=== PATIENT | female | born 1955 | race Caucasian/White ===

== ENCOUNTER 2018-04-16 14:55 | Inpatient (IN) ==
[2018-04-16] MEDS ORDERED: *HR* Labetalol 20 MG/4 ML SYRINGE IVP ONE (15:09)
[2018-04-16] MEDS ORDERED: 0.9 % Sodium Chloride 1,000 ML IVC ONE (15:16)
[2018-04-16] MEDS ORDERED: Metoclopramide 10 MG/2 ML VIAL IVP ONE (15:16)
[2018-04-16] MEDS ORDERED: *HR* Labetalol 100 MG/20 ML MDV ONE (15:16)
--- NOTE | 2018-04-16 15:47 | Emergency Department Note ---
START Narrative - START START: I examined this patient and my medical decision-making was reviewed with the Resident Physician. I agree with the documented findings, disposition and treatment plan as described except to the extent set forth below. 62 yo F here for MA and right facial numbness. MA for past few days. numbness this am around 7am. feels like her face is weak on right side. She denies any leg or arm involvement. She states she has had a headache generally speaking for the past couple days. She has had a recent diagnosis of uncontrolled hypertension in which she was started on medications last . Her blood pressure today is 200 systolic. We have ordered a CT head. I ordered some IV blood pressure medications. Patient will need to be admitted for CVA workup as well as blood pressure control. On exam, she does have flattening of the right nasolabial fold. No other focal deficits other than she describes some sensory numbness to the right cheek and right corner of the mouth.
--- NOTE | 2018-04-16 16:13 | Emergency Department Note ---
Disposition Clinical Impression: Stroke-like symptom, Hypertensive emergency Headache Qualifiers: Headache type: other headache syndrome Qualified Code(s): G44.89 - Other headache syndrome Disposition: Admitted As Inpatient Condition: Fair Referrals: Amadou Ching MD [Primary Care Provider] - Forms: ED Satisfaction Letter Time of Disposition: 17:02 General Adult HPI - General Chief complaint: ED Headache Stated complaint: MA Time Seen by Provider: 04/16/18 15:07 Source: patient Limitations: no limitations Nursing Notes Reviewed: Yes Vital Signs Reviewed: Yes - History of Present Illness HPI Narrative: 62-year-old female presents to the emergency department with concern for headache. Patient states that it started at 7 AM this morning. Patient states that she woke up with it. Patient describes it as similar to the headaches that she has had over the last 3 and half weeks. Patient states that she has some right-sided numbness of the face. Denies any history of strokes. Is supposed to follow neurology. Takes lisinopril for blood pressure. Patient still has the headache. Denies that it is worse than the previous ones she has had. Pain Scale: 6 - Related Data Home Medications Medication Instructions Recorded Confirmed Albuterol Neb [Proventil Neb] 2.5 mg IH Q6H PRN 04/16/18 04/16/18 Fluticasone/Salmeterol [Advair 1 puff IH BID 04/16/18 04/16/18 250-50 Diskus] Ipratropium/Albuterol Sulfate 2 puff IH BID PRN 04/16/18 04/16/18 [Combivent Respimat 20-100 Mcg] Lisinopril [Zestril] 20 mg PO DAILY 04/16/18 04/16/18 Metformin HCl [Metformin HCl] 500 mg PO BID 04/16/18 04/16/18 Omeprazole [PriLOSEC] 40 mg PO DAILY 04/16/18 04/16/18 Allergies Allergy/AdvReac Type Severity Reaction Status Date / Time No Known Allergies Allergy Verified 04/16/18 14:57 All systems ED: reviewed and negative except as stated. Review of Systems: As Per HPI Constitutional: Denies: fever Cardiovascular: Denies: chest pain Respiratory: Denies: cough, dyspnea Gastrointestinal: Denies: abdominal pain, nausea, vomiting Genitourinary: Denies: urgency Musculoskeletal: Denies: back pain, neck pain Integumentary: Denies: rash Neurological: Reports: headache, numbness Past Medical History - Past Medical History Medical history: Reports: COPD, diabetes, hyperlipidemia, hypertension, kidney stones, other Surgical history: Reports: Psychiatric history: Reports: no psych history - Social History Smoking Status: Current every day smoker Smokeless Tobacco Status: No Alcohol use: Reports: rarely Drug use: Reports: cocaine, marijuana Physical Exam - General Limitations: no limitations General appearance: alert - Head Head exam: atraumatic, normocephalic - Eye Eye exam: Present: EOMI - ENT ENT exam: normal exam, normal oropharynx - Neck Neck exam: Present: trachea midline. Absent: tenderness, meningismus - Chest Chest inspection: Present: symmetric chest wall rise - Respiratory Respiratory exam: Present: normal lung sounds bilaterally. Absent: respiratory distress - Cardiovascular Cardiovascular exam: Present: regular rate, normal rhythm, normal heart sounds - Abdominal Exam Abdominal exam: Present: soft, tenderness. Absent: distention, guarding, rebound Abdominal tenderness: Present: diffuse, mild - Extremities Exam Extremities exam: Present: full ROM, normal capillary refill. Absent: tenderness - Back Exam Back exam: Present: normal inspection. Absent: tenderness - Neurological Exam Neurological exam: Present: alert, oriented X3, other (Right-sided facial weakness, normal sensation throughout, able to wrinkle forehead, GCS 15) - Psychiatric Psychiatric exam: Present: normal affect, normal mood - Skin Skin exam: Present: warm, dry, intact Course Vital Signs Temperature 97.8 F 04/16/18 14:57 Pulse Rate 88 04/16/18 14:57 Respiratory Rate 16 04/16/18 14:57 Blood Pressure 207/115 04/16/18 14:57 O2 Sat by Pulse Oximetry 97 04/16/18 14:57 Temperature 97.8 F 04/16/18 14:57 Pulse Rate 85 04/16/18 16:25 Respiratory Rate 16 04/16/18 16:25 Blood Pressure 153/90 04/16/18 16:25 O2 Sat by Pulse Oximetry 96 04/16/18 16:25 Oxygen Delivery Oxygen Delivery Room Air Medical Decision Making - MDM Narrative Medical decision making narrative: 62-year-old female presents to the emergency department with concern for headache and new right-sided facial weakness starting at 7 AM this morning. NIH of 1 Patient out of the window for TPA. Patient was reporting facial numbness of the right side of her face, but on exam, sensation was the same on both sides of her face. CT scan of the head did not reveal evidence of new ischemic changes. Electrocardiogram did not reveal any ischemic changes. Blood pressure was elevated with a systolic in the 200s. Patient was given 10 mg labetalol to reduce blood pressure some, but to not stop cerebral perfusion. Patient will be admitted to the hospital for further management of both her new neurologic abnormalities as well as blood pressure. Patient was mildly hypokalemic with a potassium of 3.3. Gave 40 mg oral potassium. Spoke with the neurologist, Dr. Scales on the phone regarding patient care. He recommended giving aspirin. Spoke with patient at bedside with and he appreciated the right facial weakness that has still persisted. Systolic blood pressure now reduced to the 150s. Patient's headache has now resolved. Patient agreed for admission. Hospitalist agreed to accept patient for admission. Hemodynamically stable and not in any acute distress at this time. Head CT 04/16/18 15:07 IMPRESSION: No acute intracranial abnormality with few incidental/chronic findings as described. D/ / Judy Julian MD / Judy Julian MD Interpreting Provider: Judy Julian MD Chest X-Ray 04/16/18 16:16 IMPRESSION: Grossly clear lungs. D/ / Vincent Vogel MD / Vincent Vogel MD Interpreting Provider: Vincent Vogel MD Vital Signs Temperature 97.8 F 04/16/18 14:57 Pulse Rate 88 04/16/18 14:57 Respiratory Rate 16 04/16/18 14:57 Blood Pressure 207/115 04/16/18 14:57 O2 Sat by Pulse Oximetry 97 04/16/18 14:57 Temperature 97.8 F 04/16/18 14:57 Pulse Rate 85 04/16/18 16:25 Respiratory Rate 16 04/16/18 16:25 Blood Pressure 153/90 04/16/18 16:25 O2 Sat by Pulse Oximetry 96 04/16/18 16:25 Oxygen Delivery Oxygen Delivery Room Air - Lab Data Result diagrams: 04/16/18 16:12 04/16/18 16:12 Lab Results 04/16/18 04/16/18 04/16/18 Range/Units 16:12 16:12 16:12 WBC 9.3 (4.3-11.1) K/mcL RBC 4.73 (3.82-4.97) M/mcL Hgb 13.5 (11.5-15.4) g/dL Hct 39.3 (35.3-44.9) % MCV 83.1 (83.0-100.0) fL MCH 28.5 (28.0-33.3) pg MCHC 34.4 (31.6-35.5) g/dL RDW 13.6 (11.5-14.5) % Plt Count 284 (140-400) K/mcL MPV 10.5 (9.4-12.4) fL Immature Gran % 0.3 (0-4) % Seg Neutrophils % 56.5 % Lymphocytes % 29.3 % Monocytes % 9.2 % Eosinophils % 4.2 % Basophils % 0.5 % Neutrophils # 5.2 (1.6-8.9) K/mcL Lymphocytes # 2.7 (0.6-4.6) K/mcL Monocytes # 0.9 (0.0-1.3) K/mcL Eosinophils # 0.4 (0.0-0.6) K/mcL Basophils # 0.1 (0.0-0.2) K/mcL PT 10.1 (9.4-12.1) Seconds INR 0.9 APTT 38.4 H (26.0-36.0) Seconds Sodium 141 (136-145) mEq/L Potassium 3.3 L (3.5-5.1) mEq/L Chloride 107 (98-107) mEq/L Carbon Dioxide 26 (23-29) mEq/L BUN 9 (8-23) mg/dL Creatinine 0.58 L (0.60-1.20) mg/dL Est GFR ( Amer) > 60 (> 60) Est GFR (Non-Af Amer) > 60 (> 60) BUN/Creatinine Ratio 16 (6-26) Glucose 131 H (70-105) mg/dL Calculated Osmolality 292 (280-300) Calcium 8.3 L (8.6-10.3) mg/dL - EKG Data EKG #2 EKG attestation: Yes I reviewed and interpreted this EKG. EKG results narrative: 15:34 Ventricular rate 79 bpm, NV interval 184 ms, QRS duration 93 ms, QT 393 ms, QTC 427 ms, left axis deviation. There are no ischemic ST changes noted on this electrocardiogram with a previous study compared on 04/01/2018.
[2018-04-16 16:43] LABS: Basophils # 0.1 K/mcL (0.0-0.2); Basophils % 0.5 %; Eosinophils # 0.4 K/mcL (0.0-0.6); Eosinophils % 4.2 %; Hematocrit 39.3 % (35.3-44.9); Hemoglobin 13.5 g/dL (11.5-15.4); Immature Granulocytes % 0.3 % (0-4); Lymphocytes # 2.7 K/mcL (0.6-4.6); Lymphocytes % 29.3 %; Mean Corpuscular HGB Conc 34.4 g/dL (31.6-35.5); Mean Corpuscular Hemoglobin 28.5 pg (28.0-33.3); Mean Corpuscular Volume 83.1 fL (83.0-100.0); Mean Platelet Volume 10.5 fL (9.4-12.4); Monocytes # 0.9 K/mcL (0.0-1.3); Monocytes % 9.2 %; Neutrophils # 5.2 K/mcL (1.6-8.9); Platelet Count 284 K/mcL (140-400); Red Blood Count 4.73 M/mcL (3.82-4.97); Red Cell Distribution Width 13.6 % (11.5-14.5); Segmented Neutrophils % 56.5 %
[2018-04-16] MEDS ORDERED: Aspirin 81 MG TAB.CHEW PO STA (16:44)
[2018-04-16 16:45] LABS: INR 0.9; Prothrombin Time 10.1 Seconds (9.4-12.1)
[2018-04-16 16:48] LABS: Activated Partial Thrombo Time 38.4 Seconds (26.0-36.0); BUN/Creatinine Ratio 16 (6-26); Blood Urea Nitrogen 9 mg/dL (8-23); Calcium 8.3 mg/dL (8.6-10.3); Carbon Dioxide 26 mEq/L (23-29); Chloride 107 mEq/L (98-107); Glucose 131 mg/dL (70-105); Osmolality,Calculated 292 (280-300); Potassium 3.3 mEq/L (3.5-5.1); Sodium 141 mEq/L (136-145); eGFR For African Americans > 60 (> 60); eGFR For Non-African Americans > 60 (> 60)
[2018-04-16] MEDS ORDERED: Ipratropium/Albuterol Neb 3 ML IH PRN (17:20)
[2018-04-16] MEDS ORDERED: D5% in Water 1,000 ML IVC PRN (17:22)
[2018-04-16] MEDS ORDERED: Acetaminophen 325 MG TABLET PO PRN (17:22)
[2018-04-16] MEDS ORDERED: Dextrose Gel 15 GM/37.5 ML TUBE PO PRN ×2 (17:22)
[2018-04-16] MEDS ORDERED: *HR* OxyCODONE Immed Rel 5 MG TABLET PO PRN (17:22)
[2018-04-16] MEDS ORDERED: *HR* Dextrose 50 % in Water (Syg) 50 ML SYRINGE IVP PRN (17:22)
[2018-04-16] MEDS ORDERED: Naloxone 0.4 MG/ML INJ IVP PRN (17:22)
--- NOTE | 2018-04-16 17:28 | Internal Med History&Physical ---
Date of Encounter: 04/16/18 Time of Encounter: 17:26 Internal Medicine - H&P: HPI Chief complaint: Facial weakness Admitted From: Emergency Dept History of present illness: Ms. Zhao is a 62 year old female with a past medical history of diabetes type 2 not insulin-dependent, COPD not oxygen dependent, tobacco abuse, hypertension who came to emergency room complaining of right facial weakness and numbness that started when she woke up at 7 AM this morning. She has been having a headache and tired today and was complaining of right leg tingling since yesterday. She was started on lisinopril one week ago 20 mg daily. Her blood pressure today is 207/115 potassium was 3.[address] scan shows small chronic small vessel disease/ischemic disease mostly on the left. Patient had an MRI of the brain performed on April 08 that did not show any strokes, carotid ultrasound the same day was normal. The MRI of the brain showed minimal global parenchymal volume loss with mild chronic vascular microvascular ischemic changes and bilateral mastoid effusions. Was given labetalol but emergency room and her blood pressures in the 150s at the moment, she is not having some nausea vomiting since last night and one episode of watery diarrhea with abdominal cramps, has not vomited today, no fevers, feels weak Past Med Surg Social Fam HX - Past Medical History Medical history: COPD (Not oxygen dependent), diabetes (Not insulin-dependent), hyperlipidemia, hypertension, kidney stones, other (Tobacco abuse) Additional medical history: "Lesion in the brain", Obese Psychiatric history: no psych history - Past Surgical History Surgical History: , other (Breast reduction, tummy tuck, right ankle surgery) Additional surgical history: breast reduction. tummy tuck. parathyroid - Social History Smoking Status: Current every day smoker Packs per day: Less than half a pack per day Smokeless Tobacco Status: No Alcohol use: rarely Drug use: cocaine, marijuana - Additional Family History Additional family history: Father with diabetes and mother with diabetes and hypertension Internal Medicine - H&P: Meds Albuterol Neb [Proventil Neb] 2.5 mg IH Q6H PRN 04/16/18 [History] Fluticasone/Salmeterol [Advair 250-50 Diskus] 1 puff IH BID 04/16/18 [History] Ipratropium/Albuterol Sulfate [Combivent Respimat 20-100 Mcg] 2 puff IH BID PRN 04/16/18 [History] Lisinopril [Zestril] 20 mg PO DAILY 04/16/18 [History] Metformin HCl [Metformin HCl] 500 mg PO BID 04/16/18 [History] Omeprazole [PriLOSEC] 40 mg PO DAILY 04/16/18 [History] 3 Allergy/AdvReac Type Severity Reaction Status Date / Time No Known Allergies Allergy Verified 04/16/18 14:57 All Systems PM: A 10-system review of systems was performed and is negative for pertinent findings except as documented above in the HPI. Review of systems: Persistent right facial weakness, other systems out of the 10 reviewed were negative - Constitutional Vitals: Temp Pulse Resp BP Pulse Ox 97.8 F 87 18 146/84 96 04/16/18 14:57 04/16/18 17:02 04/16/18 17:02 04/16/18 17:02 04/16/18 16:25 General appearance: Present: A&O X 3 (Minimal right facial droop) - Head Head exam: Present: atraumatic, normocephalic - Eye Eye exam: Present: PERRL, conjuntiva pink, sclera anicteric Pupils: Present: PERRL - Neck Neck exam general surgery: Present: supple, trachea midline. Absent: lymphadenopathy - Respiratory Respiratory exam: Present: CTAB. Absent: accessory muscle use, rales, rhonchi, wheezes - Cardiovascular Cardiovascular exam: Present: RRR, +S1, +S2. Absent: diastolic murmur, gallop, rubs, systolic murmur - GI/Abdominal GI/Abdominal exam: Present: normal bowel sounds, soft, no peritoneal signs. Absent: distended, tenderness - Extremities Exam Extremities exam: Present: warm, radial pulses palpable and symmetrical. Absent : calf tenderness, cyanotic, pedal edema - Neurological Exam Neurological exam: Present: CN II-XII intact, oriented X3, no focal deficits. Absent: pronater drift, facial droop, speech deficit - Skin Skin exam: Present: dry, intact Internal Med - H&P Results - Labs CBC & Chem 7: 04/16/18 16:12 04/16/18 16:12 Labs: Short CBC 05/31/18 Range/Units 16:12 WBC 9.3 (4.3-11.1) K/mcL Hgb 13.5 (11.5-15.4) g/dL Hct 39.3 (35.3-44.9) % Plt Count 284 (140-400) K/mcL Neutrophils # 5.2 (1.6-8.9) K/mcL BMP 04/16/18 16:12 Sodium 141 Potassium 3.3 L Chloride 107 Carbon Dioxide 26 BUN 9 Creatinine 0.58 L Glucose 131 H Calcium 8.3 L - Impressions ITS Impressions Head CT 04/16/18 15:07 IMPRESSION: No acute intracranial abnormality with few incidental/chronic findings as described. D/ / Judy Julian MD / Judy Julian MD Interpreting Provider: Judy Julian MD Chest X-Ray 04/16/18 16:16 IMPRESSION: Grossly clear lungs. D/ / Vincent Vogel MD / Vincent Vogel MD Interpreting Provider: Vincent Vogel MD - Assessment and plan (1) Stroke-like symptom Current Visit: Yes Status: Acute Assessment and plan: Possible CVA Neurology was consulted by the ER Continue aspirin, Lipitor, lipid panel, permissive hypertension today Repeat MRI of the brain, no need to repeat ultrasound of the carotids. Order echocardiogram Telemetry Neurochecks Omeprazole for GI prophylaxis and subcutaneous tenderness heparin for DVT prophylaxis. The patient will be admitted for observation. Full code. Time spent on this admission 40 minutes (2) Hypertensive emergency Current Visit: Yes Status: Acute Assessment and plan: Accelerated hypertension Continue hydralazine IV as needed May start Norvasc and continue lisinopril at an increased dose (3) Tobacco abuse Current Visit: Yes Status: Acute Assessment and plan: Smoking cessation counseling given for 5 min , nicotine patch (4) COPD (chronic obstructive pulmonary disease) Current Visit: Yes Status: Acute Assessment and plan: No exacerbation Qualifiers: COPD type: unspecified COPD Qualified Code(s): J44.9 - Chronic obstructive pulmonary disease, unspecified (5) Diabetes Current Visit: Yes Status: Acute Assessment and plan: Insulin sliding scale Qualifiers: Diabetes mellitus type: type 2 Diabetes mellitus buttermaker helper insulin use: without buttermaker helper use Diabetes mellitus complication status: without complication Qualified Code(s): E11.9 - Type 2 diabetes mellitus without complications (6) Hypokalemia Current Visit: Yes Status: Acute Assessment and plan: Replete as needed - Time Spent With Patient Total time spent is greater than 50% in coordination of care (as documented) at patient's floor/unit and/or counseling patient:
[2018-04-16] MEDS: Nicotine 14 MG PATCH.TD24 TD SCH (21:31)
[2018-04-16] MEDS: amLODIPine 5 MG TABLET PO SCH (21:32)
[2018-04-16] MEDS: *HR* HYDROcodone/Acet 5/325 mg TABLET PO PRN (21:32)
[2018-04-16] MEDS: Insulin LISPRO 300 UNITS/3 ML VIAL SQ SCH ×2 (21:34→21:36)
[2018-04-16] MEDS: *HR* Heparin 5,000 UNIT/ML VIAL SQ SCH (21:34)
[2018-04-16] MEDS: Lisinopril 20 MG TABLET PO SCH (21:35)
[2018-04-16] MEDS: Ondansetron 4 MG/2 ML VIAL IVP PRN (21:37)
[2018-04-17] MEDS: *HR* Heparin 5,000 UNIT/ML VIAL SQ SCH ×4 (01:27→13:57)
[2018-04-17 05:30] LABS: BUN/Creatinine Ratio 15 (6-26); Blood Urea Nitrogen 10 mg/dL (8-23); Calcium 8.3 mg/dL (8.6-10.3); Carbon Dioxide 28 mEq/L (23-29); Chloride 108 mEq/L (98-107); Chol/HDL Ratio 4.8 (0-4.9); Cholesterol 193 mg/dL (< 200); Glucose 142 mg/dL (70-105); HDL Cholesterol 40 mg/dL (40-59); LDL Cholesterol,Calculated 89 mg/dL (0-99); Osmolality,Calculated 293 (280-300); Potassium 3.9 mEq/L (3.5-5.1); Sodium 141 mEq/L (136-145); Triglycerides 318 mg/dL (< 150); eGFR For African Americans > 60 (> 60); eGFR For Non-African Americans > 60 (> 60)
[2018-04-17] MEDS: amLODIPine 5 MG TABLET PO SCH (09:51)
[2018-04-17] MEDS: Nicotine 14 MG PATCH.TD24 TD SCH ×2 (09:51→18:00)
[2018-04-17] MEDS: Insulin LISPRO 300 UNITS/3 ML VIAL SQ SCH ×4 (09:51→21:18)
[2018-04-17] MEDS: Lisinopril 20 MG TABLET PO SCH (09:51)
[2018-04-17] MEDS: Aspirin Enteric Coated 81 MG Tablet PO SCH (09:51)
[2018-04-17] MEDS: *HR* HYDROcodone/Acet 5/325 mg TABLET PO PRN ×2 (10:04→21:04)
--- NOTE | 2018-04-17 16:15 | Internal Med Progress Note ---
<Fitz Johnson - Last Filed: 04/17/18 15:43> Date of Encounter: 04/17/18 Time of Encounter: 15:44 - Assessment and plan (1) Lacunar infarct, acute Current Visit: Yes Status: Acute Assessment and plan: MRI shows small focus of acute infarct within the left lateral midbrain/ inferior thalamus without any associated hemorrhage or mass effect. Patient's symptoms include right facial numbness and weakness. On neuro exam patient has decreased sensation to pinprick and light touch on the right face. Currently she is on aspirin, statin. Echocardiogram shows no wall motion abnormalities, absent PFO. Patient had carotid Dopplers last week which were negative. Neurology has been consulted. PT OT has cleared patient for discharge. (2) Hypertensive emergency Current Visit: Yes Status: Acute Assessment and plan: On admission patient's blood pressure systolic 200s. She reports her blood pressure has been elevated in the past 3 weeks. She was recently started on lisinopril outpatient by nephrology. Currently she is on lisinopril and amlodipine with a blood pressure 130s systolic. (3) Diabetes Current Visit: Yes Status: Acute Assessment and plan: last hga1c 7.5 insulin sliding scale. reports LE toe pain: would like podiatry consult on discharge Qualifiers: Diabetes mellitus type: type 2 Diabetes mellitus jail insulin use: without jail use Diabetes mellitus complication status: without complication Qualified Code(s): E11.9 - Type 2 diabetes mellitus without complications (4) Tobacco abuse Current Visit: Yes Status: Acute Assessment and plan: Smoking cessation counseling given for 5 min , nicotine patch (5) COPD (chronic obstructive pulmonary disease) Current Visit: Yes Status: Acute Assessment and plan: No exacerbation Qualifiers: COPD type: unspecified COPD Qualified Code(s): J44.9 - Chronic obstructive pulmonary disease, unspecified (6) Hypokalemia Current Visit: Yes Status: Resolved Assessment and plan: resolved. (7) Left leg swelling Current Visit: Yes Status: Acute Assessment and plan: has unilateral left lower extremity swelling doppler ordered Patient has increased chance of clotting secondary to nephrotic syndrome. will give one time therapeutic Lovenox. (8) Nephrotic syndrome Current Visit: Yes Status: Acute Assessment and plan: Patient's 24 hour urine protein was 12,449. Last urinalysis was positive for blood and red blood cell casts. She has had extensive workup Patient by nephrology: kappa/lambda ratio wnl, norris WNL, C3 wnl low IgG, normal hepatitis panel, HIV negative, nephrology consulted as patients stroke may be related to this. - Time Spent With Patient Total time spent is greater than 50% in coordination of care (as documented) at patient's floor/unit and/or counseling patient: - Subjective Interval history: Patient reports some Lasix she saw nephrology as there is a lot of protein found on urinalysis. From previous labs patient seems to have nephritic syndrome with red blood cell casts and 24-hour urine protein greater than 12, 000. Patient also has left lower extremity swelling concerning for DVT. She reports that her right facial numbness is present but improved. She denies slurred speech, dizziness, weakness. - Constitutional Vitals: Temp Pulse Resp BP Pulse Ox 97.8 F 75 17 136/82 95 04/17/18 15:04 04/17/18 15:04 04/17/18 15:04 04/17/18 15:04 04/17/18 15:04 General appearance: Present: A&O X 3 (Minimal right facial droop) - Other Additional findings: General: Pleasant without distress HEENT: Head atraumatic, normocephalic, EOMI, PERRL, neck nontender to palpation , absent lymphadenopathy, Moist Mucous Membranes, Heart: Regular rate and rhythm with no murmur Lungs: Clear to auscultation bilaterally Abdomen: Soft nontender, nondistended positive bowel sounds Skin: dry scaly plaques on lower extremities Extremities: LLE edema. Neuro: Cranial nerves II through XII intact, UE and LE sensation equal bilaterally except right facial decreased sensation light tough and pinprick, UE and LE strength 5/5, alert oriented 3, Heel to rivas intact, finger to nose intact, Gait intact, rhombergs sign negative, b/l plantar reflexes downwards Vascular: Pedal and radial pulses 2 out of 4 Internal Medicine: Result - Labs CBC & Chem 7: 04/16/18 16:12 04/17/18 04:55 Labs: BMP 04/17/18 04:55 Sodium 141 Potassium 3.9 Chloride 108 H Carbon Dioxide 28 BUN 10 Creatinine 0.66 Glucose 142 H Calcium 8.3 L - ABG Interpretation ABG results: PT/INR, D-dimer PT 10.1 Seconds (9.4-12.1) 04/16/18 16:12 - Impressions Impressions Echocardiogram 04/17/18 17:21 Impressions: LVEF 60-65%. Normal LV chamber size, wall thickness and function. Mild left ventricular diastolic dysfunction. Normal right ventricular structure and function. No evidence of pulmonary hypertension. No significant valvular dysfunction. No evidence of a PFO with agitated saline contrast. Left Ventricular Wall Motion: Rest Echo Findings All wall segments showed normal motion. Findings: Study Quality * Technically adequate exam. ECG Findings * Normal sinus rhythm. Left Ventricle * LVEF 60-65%. * Normal LV chamber size, wall thickness and function. * Mild left ventricular diastolic dysfunction. Right Ventricle * Normal right ventricular structure and function. Left Atrium * Mild to moderately dilated left atrium. Right Atrium * Normal right atrial size. Aortic Valve * Trileaflet aortic valve. * Mildly sclerotic aortic valve leaflets. * No aortic regurgitation. * No aortic stenosis. Mitral Valve * Normal mitral valve structure and function. * No mitral regurgitation. * No mitral stenosis. Tricuspid Valve * Normal tricuspid valve structure and function. * Trace tricuspid regurgitation. * No evidence of pulmonary hypertension. Pulmonic Valve * Normal pulmonic valve structure and function. * No pulmonic regurgitation. Aorta * Normally sized aortic root. Pericardium * The pericardium appears normal. IVC * Normal IVC dimensions and inspiratory collapse. Pulmonary Artery * Normal visualized portions of the main pulmonary artery. Interatrial Septum * No evidence of PFO with agitated saline contrast. Consult Discharge Plan - Plan Referrals: Amadou Ching MD [Primary Care Provider] - <Destin Melgar - Last Filed: 04/17/18 18:47> Date of Encounter: 04/17/18 - Assessment and plan (1) CVA (cerebral vascular accident) Current Visit: Yes Status: Suspected Qualifiers: CVA mechanism: thrombosis Precerebral and cerebral artery: middle cerebral artery Laterality of affected vessel: left Qualified Code(s): I63.312 - Cerebral infarction due to thrombosis of left middle cerebral artery (2) Hypertensive emergency Current Visit: Yes Status: Acute (3) Diabetes Current Visit: Yes Status: Acute Qualifiers: Diabetes mellitus type: type 2 Diabetes mellitus jail insulin use: without jail use Diabetes mellitus complication status: without complication Qualified Code(s): E11.9 - Type 2 diabetes mellitus without complications (4) Tobacco abuse Current Visit: Yes Status: Acute (5) COPD (chronic obstructive pulmonary disease) Current Visit: Yes Status: Acute Qualifiers: COPD type: unspecified COPD Qualified Code(s): J44.9 - Chronic obstructive pulmonary disease, unspecified (6) Hypokalemia Current Visit: Yes Status: Resolved (7) Lacunar infarct, acute Current Visit: Yes Status: Acute (8) Left leg swelling Current Visit: Yes Status: Acute (9) Nephrotic syndrome Current Visit: Yes Status: Acute - Time Spent With Patient Total time spent is greater than 50% in coordination of care (as documented) at patient's floor/unit and/or counseling patient: - Constitutional Vitals: Temp Pulse Resp BP Pulse Ox 97.8 F 75 17 136/82 95 04/17/18 15:04 04/17/18 15:04 04/17/18 15:04 04/17/18 15:04 04/17/18 15:04 Internal Medicine: Result - Labs CBC & Chem 7: 04/16/18 16:12 04/17/18 04:55 Labs: BMP 04/17/18 04:55 Sodium 141 Potassium 3.9 Chloride 108 H Carbon Dioxide 28 BUN 10 Creatinine 0.66 Glucose 142 H Calcium 8.3 L - ABG Interpretation ABG results: PT/INR, D-dimer PT 10.1 Seconds (9.4-12.1) 04/16/18 16:12 - Impressions Impressions Echocardiogram 04/17/18 17:21 Impressions: LVEF 60-65%. Normal LV chamber size, wall thickness and function. Mild left ventricular diastolic dysfunction. Normal right ventricular structure and function. No evidence of pulmonary hypertension. No significant valvular dysfunction. No evidence of a PFO with agitated saline contrast. Left Ventricular Wall Motion: Rest Echo Findings All wall segments showed normal motion. Findings: Study Quality * Technically adequate exam. ECG Findings * Normal sinus rhythm. Left Ventricle * LVEF 60-65%. * Normal LV chamber size, wall thickness and function. * Mild left ventricular diastolic dysfunction. Right Ventricle * Normal right ventricular structure and function. Left Atrium * Mild to moderately dilated left atrium. Right Atrium * Normal right atrial size. Aortic Valve * Trileaflet aortic valve. * Mildly sclerotic aortic valve leaflets. * No aortic regurgitation. * No aortic stenosis. Mitral Valve * Normal mitral valve structure and function. * No mitral regurgitation. * No mitral stenosis. Tricuspid Valve * Normal tricuspid valve structure and function. * Trace tricuspid regurgitation. * No evidence of pulmonary hypertension. Pulmonic Valve * Normal pulmonic valve structure and function. * No pulmonic regurgitation. Aorta * Normally sized aortic root. Pericardium * The pericardium appears normal. IVC * Normal IVC dimensions and inspiratory collapse. Pulmonary Artery * Normal visualized portions of the main pulmonary artery. Interatrial Septum * No evidence of PFO with agitated saline contrast. - Attending Attestation I examined this patient and my medical decision-making was reviewed with the Resident Physician on 04/17/18. I agree with the documented findings, disposition and treatment plan as described except to the extent set forth below. Ms Zhao is currently admitted for acute CVA and HTN. She remains moderate to high risk due to potential for worsening clinical status. Ms Zhao is doing OK. Still with facial numbness. No fever or chills. L leg swollen. Seeing Dr. Joe for renal issues. Exam alert Comfortable Mucus membranes dry Heart reg No wheeze No other neuro deficit L leg larger than R I/P 1. CVA 2. HTN Further diagnoses and plan as above.
[2018-04-17] MEDS: *HR* Enoxaparin 80 MG/0.8 ML SYRINGE SQ SCH (18:00)
--- NOTE | 2018-04-17 18:29 | Neurology - Consult Note ---
Date of Encounter: 04/17/18 Time of Encounter: 18:27 Assessment and Plan (1) Lacunar infarct, acute Current Visit: Yes Status: Acute Patient has experienced an acute left lacunar infarct involving the left basal ganglia. She does have multiple stroke risk factors including hypertension, hyperlipidemia, diabetes mellitus. Her blood pressure was markedly elevated at 200/115 upon admission. More than likely this was the cause for her intense headache. However I would like to rule out the possibility of cerebral aneurysm given the circumstances. She has had echocardiogram and carotid Doppler studies both of which were negative. However I do believe that she has had uncontrolled hypertensive for quite some time as the MRI reveals significant chronic ischemic white matter change in the centrum semiovale ovale , as well as chronic ischemic change in the cruzito. Risk factor management is paramount, smoking cessation is also paramount. I would recommend aspirin 81 mg daily and follow-up with her primary care provider after discharge. At this point she may need a brief course of outpatient physical therapy. I will order an MRA scan of the brain to assess for the possibility of cerebral aneurysm. Stroke protocol orders should be in place during her hospitalization. History of Present Illness HPI: Chart was reviewed, the patient was seen and examined. Bia Zhao is a very pleasant 62-year-old woman who is being seen for neurologic evaluation secondary to acute infarct in the left basal ganglia. She has been experiencing headaches over the last month or so. The headaches of been increasingly more intense. The night prior to admission she had a very intense headache with associated nausea and vomiting. Apparently she woke up the following morning with Brillion of the right face and right facial numbness. She was brought to the [facility] and her blood pressure was found to be 207/115. She had a carotid Doppler study completed about a week or so ago which revealed no evidence of carotid artery stenosis. She also had an MRI scan of the brain on April 08 the did show a significant chronic ischemic deep white matter change as well as chronic ischemic change in the cruzito. The MRI scan today however revealed the acute infarct in left basal ganglia. Other risk factors include diabetes hyperlipidemia and cigarette smoking. She denies a long history of headaches. And therefore concerned about the possibility of cerebral aneurysm. However the headache was likely due to hypertensive emergency. Past Med Surg Social Fam HX - Past Medical History Medical history: COPD, diabetes, hyperlipidemia, hypertension, kidney stones, other Additional medical history: "Lesion in the brain", Obese Psychiatric history: no psych history - Past Surgical History Surgical History: , other Additional surgical history: breast reduction. tummy tuck. parathyroid - Social History Smoking Status: Current every day smoker Packs per day: Less than half a pack per day Smokeless Tobacco Status: No Alcohol use: rarely Drug use: cocaine, marijuana - Family History Father Living Status: Age at : 75 Cause of : natural causes Hx Family Cardiac Disorders: Yes (pacemaker, cabg, htn) Hx Family Respiratory Disorders: No Hx Family Cancer: Yes (prostate ca) Hx Family GI Disorders: No Hx Family Genitourinary Disorders: Yes (prostate ca) Hx Family Endocrine Disorder: Yes (brights disease) Hx Family Musculoskeletal Disorders: No Hx Family Neuromuscular Disorders: No Hx Family Neurologic Disorders: Yes (dementia) Hx Family HEENT Disorders: No Hx Family Autoimmune Disorders: No Hx Family Reproductive Disorders: Yes (Prostate ca) Hx Family Psychosocial Disorders: No Hx Family Medical Disorders: No Mother Living Status: Still Living Hx Family Cardiac Disorders: Yes (pacemaker, cabg, htn) Hx Family Respiratory Disorders: Yes (asthma) Hx Family Cancer: No Hx Family GI Disorders: No Hx Family Genitourinary Disorders: No Hx Family Endocrine Disorder: Yes (dm !!) Hx Family Musculoskeletal Disorders: No Hx Family Neuromuscular Disorders: No Hx Family Neurologic Disorders: No Hx Family HEENT Disorders: No Hx Family Autoimmune Disorders: No Hx Family Reproductive Disorders: No Hx Family Psychosocial Disorders: No Hx Family Medical Disorders: Yes (von wildebrans) Sister Living Status: Still Living Age at : 65 Cause of : pancreatic cancer Hx Family Cardiac Disorders: No Hx Family Respiratory Disorders: No Hx Family Cancer: Yes (pancreatic ca) Hx Family GI Disorders: No Hx Family Genitourinary Disorders: No Hx Family Endocrine Disorder: No Hx Family Musculoskeletal Disorders: No Hx Family Neuromuscular Disorders: No Hx Family Neurologic Disorders: No Hx Family HEENT Disorders: No Hx Family Autoimmune Disorders: No Hx Family Reproductive Disorders: Yes (infertile) Hx Family Psychosocial Disorders: No Hx Family Medical Disorders: No Medications and Allergies Albuterol Neb [Proventil Neb] 2.5 mg IH Q6H PRN 04/16/18 [History] Fluticasone/Salmeterol [Advair 250-50 Diskus] 1 puff IH BID 04/16/18 [History] Ipratropium/Albuterol Sulfate [Combivent Respimat 20-100 Mcg] 2 puff IH BID PRN 04/16/18 [History] Lisinopril [Zestril] 20 mg PO DAILY 04/16/18 [History] Metformin HCl [Metformin HCl] 500 mg PO BID 04/16/18 [History] Omeprazole [PriLOSEC] 40 mg PO DAILY 04/16/18 [History] 3 Allergy/AdvReac Type Severity Reaction Status Date / Time No Known Allergies Allergy Verified 04/16/18 14:57 All Systems: The remainder of the systems were reviewed and are negative Review of Systems: The balance of the systems review is negative. Physical Examination - Vital Signs Vital Signs: Initial Vital Signs Temp Pulse Resp BP Pulse Ox 97.8 F 88 16 207/115 97 04/16/18 14:57 04/16/18 14:57 04/16/18 14:57 04/16/18 14:57 04/16/18 14:57 - Constitutional General appearance: comfortable - Neurologic Sensorimotor examination: other (Right facial numbness.) Motor examination - right side: 4/5: deltoids, biceps, triceps, assembly person, hip flexors, tibialis Anterior, quadriceps, toe extension (EHL), plantarflexion Motor examination - left side: 5/5: deltoids, biceps, triceps, hip flexors, assembly person , quadriceps, tibialis Anterior, toe extension (EHL), plantarflexion Detailed sensory examination: other (Right facial numbness, however the extremities have equal sensation throughout.) Mental Status Examination: awake, alert, oriented to person, oriented to place, oriented to time, follows commands appropriately, answers questions appropriately, no agnosia, no aphasia, no aproxia Cranial nerve examination: PERRL, EOMI, visual dickerson intact, corneal reflexes brisk symmetrically, mastication intact, no dysarthria, hearing is intact symmetrically, soft palate elevates bilaterally upon phonation Cranial Nerve Exam: facial hypesthesia: Right, facial droop: Right, flattening of masolabic/folds: Right Cerebellar examination: no dysmetria, performs finger to nose and heel to rivas symmetrically without ataxia, no gait ataxia, no truncal ataxia, no difficulty with rapid alternating movements Results - Laboratory Findings CBC and BMP: 04/16/18 16:12 04/17/18 04:55 Abnormal lab findings: Abnormal lab results APTT 38.4 Seconds (26.0-36.0) H 04/16/18 16:12 Chloride 108 mEq/L (98-107) H 04/17/18 04:55 Glucose 142 mg/dL (70-105) H 04/17/18 04:55 POC Glucose 136 mg/dL (70-99) H 04/16/18 21:26 Calcium 8.3 mg/dL (8.6-10.3) L 04/17/18 04:55 Triglycerides 318 mg/dL (< 150) H 04/17/18 04:55 VLDL Cholesterol, Calc 64 mg/dL (< 31) H 04/17/18 04:55 Consult Discharge Plan - Plan Referrals: Amadou Ching MD [Primary Care Provider] -
[2018-04-17] MEDS: Ondansetron 4 MG/2 ML VIAL IVP PRN (21:04)
[2018-04-18] MEDS: *HR* Enoxaparin 80 MG/0.8 ML SYRINGE SQ SCH ×2 (05:26→17:25)
[2018-04-18] MEDS: Insulin LISPRO 300 UNITS/3 ML VIAL SQ SCH ×4 (08:53→21:34)
[2018-04-18] MEDS: amLODIPine 5 MG TABLET PO SCH (08:54)
[2018-04-18] MEDS: Nicotine 14 MG PATCH.TD24 TD SCH (08:54)
[2018-04-18] MEDS: Aspirin Enteric Coated 81 MG Tablet PO SCH (08:55)
[2018-04-18] MEDS: Lisinopril 20 MG TABLET PO SCH (08:55)
--- NOTE | 2018-04-18 10:02 | Nephrology Consult Note ---
Date of Encounter: 04/18/18 Time of Encounter: 09:25 Assessment and Plan (1) Hypertensive emergency Current Visit: Yes Status: Acute Hypertension currently controlled. Continue current regimen. Stroke most likely related to poorly controlled/undiagnosed hypertension. Urinalysis suggests nephrotic versus nephritic process. Work up in progress, started outpatient. Florentin needing renal biopsy for definitive diagnosis. Will continue to monitor. History of Present Illness - Reason for Consult accelerated hypertension - History of Present Illness Ms. Zhao is a 62 year old female who presented to ER yesterday via EMS for headache and stroke like symptoms, right facial weakness and numbness. BP on presentation 207/115. Given Labatolol which brought SBP to 150's. Other PMH- COPD (Not oxygen dependent), diabetes (Not insulin-dependent), hyperlipidemia, hypertension, kidney stones, other (Tobacco abuse), "Lesion in the brain" Ms. Zhao is newly acquainted to practice from an initial visit last week for newly diagnosed hypertension as an incidental finding when presented a few weeks ago to ER for unrelenting headache. Also told by ER spilling protein and blood in urine per patient. Patient was told by PCP office prior to our office visist that day, MRI showed "lesion on brain" and being that she was presenting to Nephrology that day, PCP would "let Nephrology" make recommendations. MRI of the brain performed on April 08 that did not show any strokes, carotid ultrasound the same day was normal. The MRI of the brain showed minimal global parenchymal volume loss with mild chronic vascular microvascular ischemic changes and bilateral mastoid effusions. I do not have my office records available at time of consult but recall starting patient on Lisinopril 20 mg daily for moderate elevated BP in office and started hypertensive workup due to MRI findings which is concerning for uncontrolled hypertension. At visit HPI revealed father and two sisters have "Brights Disease." A renal workup was also initiated at that time along with referral to [facility] which patient stated today was scheduled but not for a couple weeks. Neurology consult noted- acute left lacunar infarct involving the left basal ganglia. Urine noted 12 gm protein, small blood. Outpatient workup labs so far show Hep B and C negative, Catecholamines in range and TSH > 8. Patient denies hypertension until incidental finding as noted above. Diabetes for 6 months, well controlled on Metformin. States has not had eye exam in over 30 years that would rule out retinopathy but admits black spots and intermittent loss of vision in recent months. Current smoker. Proteinuria and hematuria as above. Admits has also had gross hematuria in past without workup. Admits multiple renal stone events with last event in . Unsure of stone composition. Admits chronic UTI's most of adulthood. Admits chronic NSAID use. Renal fct normal. She admits some LE swelling, left>right. BP currently controlled SBP 130-140's on increase in Lisinopril 40 mg daily and Amlodipine 10 mg daily. Past Med Surg Social Fam HX - Past Medical History Medical history: COPD, diabetes, hyperlipidemia, hypertension, kidney stones, other Additional medical history: "Lesion in the brain", Obese Psychiatric history: no psych history - Past Surgical History Surgical History: , other Additional surgical history: breast reduction. tummy tuck. parathyroid - Social History Smoking Status: Current every day smoker Packs per day: Less than half a pack per day Smokeless Tobacco Status: No Alcohol use: rarely Drug use: cocaine, marijuana - Family History Father Living Status: Age at : 75 Cause of : natural causes Hx Family Cardiac Disorders: Yes (pacemaker, cabg, htn) Hx Family Respiratory Disorders: No Hx Family Cancer: Yes (prostate ca) Hx Family GI Disorders: No Hx Family Genitourinary Disorders: Yes (prostate ca) Hx Family Endocrine Disorder: Yes (brights disease) Hx Family Musculoskeletal Disorders: No Hx Family Neuromuscular Disorders: No Hx Family Neurologic Disorders: Yes (dementia) Hx Family HEENT Disorders: No Hx Family Autoimmune Disorders: No Hx Family Reproductive Disorders: Yes (Prostate ca) Hx Family Psychosocial Disorders: No Hx Family Medical Disorders: No Mother Living Status: Still Living Hx Family Cardiac Disorders: Yes (pacemaker, cabg, htn) Hx Family Respiratory Disorders: Yes (asthma) Hx Family Cancer: No Hx Family GI Disorders: No Hx Family Genitourinary Disorders: No Hx Family Endocrine Disorder: Yes (dm !!) Hx Family Musculoskeletal Disorders: No Hx Family Neuromuscular Disorders: No Hx Family Neurologic Disorders: No Hx Family HEENT Disorders: No Hx Family Autoimmune Disorders: No Hx Family Reproductive Disorders: No Hx Family Psychosocial Disorders: No Hx Family Medical Disorders: Yes (von wildebrans) Sister Living Status: Still Living Age at : 65 Cause of : pancreatic cancer Hx Family Cardiac Disorders: No Hx Family Respiratory Disorders: No Hx Family Cancer: Yes (pancreatic ca) Hx Family GI Disorders: No Hx Family Genitourinary Disorders: No Hx Family Endocrine Disorder: No Hx Family Musculoskeletal Disorders: No Hx Family Neuromuscular Disorders: No Hx Family Neurologic Disorders: No Hx Family HEENT Disorders: No Hx Family Autoimmune Disorders: No Hx Family Reproductive Disorders: Yes (infertile) Hx Family Psychosocial Disorders: No Hx Family Medical Disorders: No Medications and Allergies Albuterol Neb [Proventil Neb] 2.5 mg IH Q6H PRN 04/16/18 [History] Fluticasone/Salmeterol [Advair 250-50 Diskus] 1 puff IH BID 04/16/18 [History] Ipratropium/Albuterol Sulfate [Combivent Respimat 20-100 Mcg] 2 puff IH BID PRN 04/16/18 [History] Lisinopril [Zestril] 20 mg PO DAILY 04/16/18 [History] Metformin HCl [Metformin HCl] 500 mg PO BID 04/16/18 [History] Omeprazole [PriLOSEC] 40 mg PO DAILY 04/16/18 [History] 3 Allergy/AdvReac Type Severity Reaction Status Date / Time No Known Allergies Allergy Verified 04/16/18 14:57 Review of Systems All Systems: reviewed and no additional remarkable complaints except as stated Exam - Vital Signs Vital signs: Initial Vital Signs Temp Pulse Resp BP Pulse Ox 97.8 F 88 16 207/115 97 04/16/18 14:57 04/16/18 14:57 04/16/18 14:57 04/16/18 14:57 04/16/18 14:57 Vital Signs - Last 8 Hours Temp Pulse Resp BP Pulse Ox 04/18/18 09:00 83 17 145/91 04/18/18 07:14 97.3 F L 80 16 145/91 92 04/18/18 05:30 97.8 F 71 16 139/79 04/18/18 04:49 97.8 F 74 15 139/79 96 Intake and Output 04/17/18 04/18/18 04/18/18 23:59 07:59 15:59 Intake Total 240 / 240 480 / 480 Output Total 650 / 650 1200 / 1200 Balance -410 / -410 -1200 / -1200 480 / 480 Intake: Oral 240 / 240 480 / 480 Output: Urine 650 / 650 1200 / 1200 Other: Meal Dinner Breakfast Percent of Meal Consumed 100% 100% Weight 101.3 kg Blood Glucose* 156 140 Patient Weight 04/18/18 23:59 Weight 101.3 kg - General Appearance General appearance: well-developed, well-nourished, appears started age EENT: mucous membranes moist Neck: no JVD Respiratory: wheezing, rhonchi Cardiology: edema, regular rate, regular rhythm Additional Comments: trace pitting left LE Gastrointestinal: normoactive bowel sounds, no tenderness Integumentary: warm and dry Neurologic: alert and oriented x3 Results - Lab Results 04/16/18 16:12 04/17/18 04:55 Most recent lab results Calcium 8.3 mg/dL (8.6-10.3) L 04/17/18 04:55 Consult Discharge Plan - Plan Referrals: Amadou Ching MD [Primary Care Provider] -
--- NOTE | 2018-04-18 10:52 | Neurology Progress Note ---
Date of Encounter: 04/18/18 Time of Encounter: 10:50 Assessment and Plan (1) Lacunar infarct, acute Current Visit: Yes Status: Acute Patient's deficits have stabilized. MRA scan of the brain was negative for evidence of cerebral aneurysm. I believe that this event occurred as a result of her malignant hypertension. Recommend normalization of blood pressure, maintain standing therapy and aspirin 81 mg daily. Aggressive management of her hypertension and diabetes is paramount. Smoking cessation is absolutely necessary. Patient is stable from my perspective. She seems to be a bit deconditioned however. She may need a brief course of outpatient physical therapy. Otherwise you may discharge her at your discretion. I will reevaluate her at your request. Subjective Interval history: The chart was reviewed, the patient was seen and examined. She had an uneventful night. The MRA scan of the brain was completed and was negative for evidence of cerebral aneurysm. Her blood pressure has improved this morning was 141/92. She has no new complaints today. Denies headache. Objective - Constitutional Vitals: Temp Pulse Resp BP Pulse Ox 97.3 F L 83 17 145/91 92 04/18/18 07:14 04/18/18 09:00 04/18/18 09:00 04/18/18 09:00 04/18/18 07:14 - Neurological Exam Sensorimotor examination: Present: other (Right facial numbness.) Motor examination - right side: 4/5: deltoids, biceps, triceps, teletype or varitype keyboard operator, hip flexors, quadriceps, 5/5: tibialis Anterior, toe extension (EHL), plantarflexion Motor examination - left side: 5/5: deltoids, biceps, triceps, hip flexors, teletype or varitype keyboard operator , quadriceps, tibialis Anterior, toe extension (EHL), plantarflexion Sensation intact: Present: other (Right facial numbness, however the extremities have equal sensation throughout.) Mental Status Examination: Present: awake, alert, oriented to person, oriented to place, oriented to time, follows commands appropriately, answers questions appropriately, no agnosia, no aphasia, no aproxia Cranial nerve examination: Present: PERRL, EOMI, visual dickerson intact, corneal reflexes brisk symmetrically, mastication intact, no dysarthria, hearing is intact symmetrically, soft palate elevates bilaterally upon phonation. Absent: no facial asymmetry is present (Very slight flattening of the right nasolabial fold.) Cranial Nerve Exam: facial hypesthesia: Right, facial droop: Right, flattening of masolabic/folds: Right Cerebellar examination: Present: no dysmetria, performs finger to nose and heel to rivas symmetrically without ataxia, no gait ataxia, no truncal ataxia, no difficulty with rapid alternating movements Results - Laboratory Findings CBC and BMP: 04/16/18 16:12 04/17/18 04:55 Abnormal lab findings: Abnormal lab results APTT 38.4 Seconds (26.0-36.0) H 04/16/18 16:12 Chloride 108 mEq/L (98-107) H 04/17/18 04:55 Glucose 142 mg/dL (70-105) H 04/17/18 04:55 POC Glucose 156 mg/dL (70-99) H 04/17/18 20:46 Calcium 8.3 mg/dL (8.6-10.3) L 04/17/18 04:55 Triglycerides 318 mg/dL (< 150) H 04/17/18 04:55 VLDL Cholesterol, Calc 64 mg/dL (< 31) H 04/17/18 04:55 Consult Discharge Plan - Plan Referrals: Amadou Ching MD [Primary Care Provider] -
[2018-04-18] MEDS: *HR* HYDROcodone/Acet 5/325 mg TABLET PO PRN (15:17)
[2018-04-18 15:33] LABS: Bilirubin,Urine Negative (Negative); Blood,Urine Small (Negative); Clarity,Urine Clear (Clear); Color,Urine Yellow (Yellow); Glucose,Urine (UA) Normal (Normal); Ketones,Urine Negative (Negative); Leukocyte Esterase,Urine Negative (Negative); Nitrite,Urine Negative (Negative); Protein,Urine >=300 mg/dL (Neg-Trace); Specific Gravity,Urine 1.008 (1.010-1.025); Urobilinogen,Urine Normal (Normal)
[2018-04-18 15:35] LABS: Bacteria,Urine None Seen per hpf (None-Few); Hyaline Casts,Urine None Seen per lpf (None-Few); Squamous Epithelial Cell,Urine Many per lpf (None-Few); WBC,Urine 0-3 per hpf (0-3)
--- NOTE | 2018-04-18 17:32 | Internal Med Progress Note ---
Date of Encounter: 04/18/18 Time of Encounter: 11:30 - Assessment and plan (1) CVA (cerebral vascular accident) Current Visit: Yes Status: Suspected Assessment and plan: Pt with acute CVA. She is on ASA. Most likely related to uncontrolled HTN. Monitor BP here tonight. Increase activity. Qualifiers: CVA mechanism: thrombosis Precerebral and cerebral artery: middle cerebral artery Laterality of affected vessel: left Qualified Code(s): I63.312 - Cerebral infarction due to thrombosis of left middle cerebral artery (2) Hypertension Current Visit: Yes Status: Chronic Qualifiers: Hypertension type: other secondary hypertension Qualified Code(s): I15.8 - Other secondary hypertension (3) Hypertensive emergency Current Visit: Yes Status: Resolved Assessment and plan: Monitoring BP tonight. Continue same meds. (4) Diabetes Current Visit: Yes Status: Acute Assessment and plan: last hga1c 7.5 insulin sliding scale. reports LE toe pain: would like podiatry consult on discharge Qualifiers: Diabetes mellitus type: type 2 Diabetes mellitus intermediate insulin use: without termite treater helper use Diabetes mellitus complication status: without complication Qualified Code(s): E11.9 - Type 2 diabetes mellitus without complications (5) Tobacco abuse Current Visit: Yes Status: Acute Assessment and plan: Wants nicotine patch on discharge (6) COPD (chronic obstructive pulmonary disease) Current Visit: Yes Status: Acute Assessment and plan: No exacerbation Qualifiers: COPD type: unspecified COPD Qualified Code(s): J44.9 - Chronic obstructive pulmonary disease, unspecified (7) Hypokalemia Current Visit: Yes Status: Resolved Assessment and plan: resolved. (8) Left leg swelling Current Visit: Yes Status: Acute Assessment and plan: Duplex negative. (9) Nephrotic syndrome Current Visit: Yes Status: Acute Assessment and plan: Patient's 24 hour urine protein was 12,449. Last urinalysis was positive for blood and red blood cell casts. She has had extensive workup Patient by nephrology: kappa/lambda ratio wnl, norris WNL, C3 wnl low IgG, normal hepatitis panel, HIV negative, nephrology consulted as patients stroke may be related to this. Appreciate nephrology input. - Time Spent With Patient Total time spent is greater than 50% in coordination of care (as documented) at patient's floor/unit and/or counseling patient: - Subjective Interval history: Ms Snyder is currently admitted for acute CVA and HTN. She remains moderate to high risk due to potential for worsening clinical and neuro status. Ms Snyder feels about the same. Her BP has improved some but still somewhat elevated. No fever or chills. No new neuro symptoms. Has not bee up walking much. - Constitutional Vitals: Temp Pulse Resp BP Pulse Ox 98.2 F 75 18 158/82 95 04/18/18 15:44 04/18/18 15:44 04/18/18 15:44 04/18/18 15:44 04/18/18 15:44 General appearance: Present: A&O X 3 (Minimal right facial droop) - Head Head exam: Present: normocephalic - Eye Eye exam: Present: conjuntiva pink - ENT ENT exam: Present: mucous membranes moist - Respiratory Respiratory exam: Present: CTAB. Absent: rales, rhonchi, wheezes - Cardiovascular Cardiovascular exam: Present: RRR. Absent: tachycardia - GI/Abdominal GI/Abdominal exam: Present: soft. Absent: tenderness - Extremities Exam Extremities exam: Present: warm. Absent: tenderness - Neurological Exam Neurological exam: Present: alert, motor sensory deficit, oriented X3 Additional comments: Decreased sensation R face. - Skin Skin exam: Present: dry, warm Internal Medicine: Result - Labs CBC & Chem 7: 04/16/18 16:12 04/17/18 04:55 Labs: Urine 04/18/18 Range/Units 15:22 Urine Color Yellow (Yellow) Urine Clarity Clear (Clear) Urine pH 7.0 (5.0-8.0) pH Units Ur Specific [place] 1.008 L (1.010-1.025) Urine Protein >=300 H (Neg-Trace) mg/dL Urine Glucose (UA) Normal (Normal) mg/dL - ABG Interpretation ABG results: PT/INR, D-dimer PT 10.1 Seconds (9.4-12.1) 04/16/18 16:12 - Impressions Impressions Head MRA 04/17/18 18:36 IMPRESSION: No aneurysm. Normal MRA. D/ / Nasir Amaro MD / Nasir Amaro MD Interpreting Provider: Nasir Amaro MD Consult Discharge Plan - Plan Referrals: Amadou Ching MD [Primary Care Provider] -
[2018-04-18] MEDS ORDERED: Budesonide/Formoterol 80/4.5 MDI IH SCH (22:00)
[2018-04-19] MEDS ORDERED: *HR* Enoxaparin 40 MG/0.4 ML SYRINGE SQ SCH (06:00)
[2018-04-19 07:47] VITALS: BP 149/83
[2018-04-19 07:52] LABS: BUN/Creatinine Ratio 21 (6-26); Blood Urea Nitrogen 12 mg/dL (8-23); Calcium 8.5 mg/dL (8.6-10.3); Carbon Dioxide 31 mEq/L (23-29); Chloride 105 mEq/L (98-107); Glucose 149 mg/dL (70-105); Magnesium 1.8 mg/dL (1.6-2.6); Osmolality,Calculated 295 (280-300); Potassium 3.7 mEq/L (3.5-5.1); Sodium 141 mEq/L (136-145); eGFR For African Americans > 60 (> 60); eGFR For Non-African Americans > 60 (> 60)
[2018-04-19 08:04] LABS: Hematocrit 38.7 % (35.3-44.9); Hemoglobin 12.9 g/dL (11.5-15.4); Mean Corpuscular HGB Conc 33.3 g/dL (31.6-35.5); Mean Corpuscular Hemoglobin 27.5 pg (28.0-33.3); Mean Corpuscular Volume 82.5 fL (83.0-100.0); Mean Platelet Volume 10.5 fL (9.4-12.4); Platelet Count 252 K/mcL (140-400); Red Blood Count 4.69 M/mcL (3.82-4.97); Red Cell Distribution Width 13.4 % (11.5-14.5)
[2018-04-19] MEDS: Lisinopril 20 MG TABLET PO SCH (08:06)
[2018-04-19] MEDS: Aspirin Enteric Coated 81 MG Tablet PO SCH (08:06)
[2018-04-19] MEDS: Nicotine 14 MG PATCH.TD24 TD SCH (08:06)
[2018-04-19] MEDS: amLODIPine 5 MG TABLET PO SCH (08:06)
[2018-04-19] MEDS: Insulin LISPRO 300 UNITS/3 ML VIAL SQ SCH (08:08)
--- NOTE | 2018-04-19 08:42 | Nephrology Progress Note ---
Date of Encounter: 04/19/18 Time of Encounter: 08:20 - Assessment and Plan (1) Hypertensive emergency Current Visit: Yes Status: Resolved Hypertension currently controlled. Continue current regimen. Stroke most likely related to poorly controlled/undiagnosed hypertension. Urinalysis suggests nephrotic versus nephritic process. Work up in progress, started outpatient. Lkely needing renal biopsy for definitive diagnosis, will do outpatient. Will continue to monitor. Subjective Interval history: Sitting up in bed, eating breakfast. SBP 130-150 except one outlier SBP 170 during night. Patient states had headache and double vision during that time, now gone. Objective - Vital Signs Vital signs: Vital Signs Temp Pulse Resp BP Pulse Ox 04/19/18 07:42 97.7 F 66 18 149/83 93 04/19/18 05:30 97.9 F 78 18 137/77 96 04/18/18 22:06 97.9 F 74 18 176/101 97 04/18/18 21:45 97 04/18/18 15:44 98.2 F 75 18 158/82 95 04/18/18 09:00 83 17 145/91 Intake and Output 04/18/18 04/19/18 04/19/18 23:59 07:59 15:59 Intake Total 200 / 200 300 / 300 Output Total 700 / 700 1200 / 1200 Balance -500 / -500 -900 / -900 Intake: Oral 200 / 200 300 / 300 Output: Urine 700 / 700 1200 / 1200 Other: Meal Dinner Percent of Meal Consumed 50% # Voids 400 0 Weight 98.9 kg Blood Glucose* 127 148 Patient Weight 04/19/18 23:59 Weight 98.9 kg - General Appearance General appearance: Present: well-developed, well-nourished, appears started age EENT: Present: mucous membranes moist Neck: Present: no JVD Respiratory: Present: wheezing Cardiology: Present: no edema, regular rate, regular rhythm Gastrointestinal: Present: normoactive bowel sounds, no tenderness Integumentary: Present: warm and dry Neurologic: Present: alert and oriented x3 - Lab 04/19/18 06:58 04/19/18 06:58 Most recent lab results Calcium 8.5 mg/dL (8.6-10.3) L 04/19/18 06:58 Magnesium 1.8 mg/dL (1.6-2.6) 06/03/18 06:58 Consult Discharge Plan - Plan Referrals: Amadou Ching MD [Primary Care Provider] -
[2018-04-19] MEDS ORDERED: NON-FORMULARY MEDICATION 1 EACH EACH (Omeprazole [Prilosec] 40 MG) PO SCH (09:00)
--- NOTE | 2018-04-19 09:49 | Discharge Summary ---
- NOTES TO OUTPATIENT PROVIDER Notes to Outpatient Provider: Pt admitted with acute CVA from hypertension. She recently has been seeing nephrology for work up of nephrotic syndrome. She is now on ASA and BP is better controlled. Date of Encounter: 04/19/18 Time of Encounter: 09:47 - Discharge Diagnosis (1) CVA (cerebral vascular accident) Priority: Primary Status: Suspected Qualifiers: CVA mechanism: thrombosis Precerebral and cerebral artery: middle cerebral artery Laterality of affected vessel: left Qualified Code(s): I63.312 - Cerebral infarction due to thrombosis of left middle cerebral artery (2) Hypertension Priority: Secondary Status: Chronic Qualifiers: Hypertension type: other secondary hypertension Qualified Code(s): I15.8 - Other secondary hypertension (3) Hypertensive emergency Priority: Secondary Status: Resolved (4) Diabetes Priority: Secondary Status: Chronic Qualifiers: Diabetes mellitus type: type 2 Diabetes mellitus laborer marine terminal insulin use: without senior living use Diabetes mellitus complication status: without complication Qualified Code(s): E11.9 - Type 2 diabetes mellitus without complications (5) Tobacco abuse Priority: Secondary Status: Chronic Assessment and Plan: Nicotine patch ordered at discharge (6) COPD (chronic obstructive pulmonary disease) Priority: Secondary Status: Chronic Qualifiers: COPD type: unspecified COPD Qualified Code(s): J44.9 - Chronic obstructive pulmonary disease, unspecified (7) Hypokalemia Priority: Secondary Status: Resolved (8) Left leg swelling Priority: Secondary Status: Acute (9) Nephrotic syndrome Priority: Secondary Status: Chronic Hospital course: Ms. Zhao is a 62 year old female with hx of DM and HTN presented to ED with numbness R side of face. She was evaluated and admitted for further work up. Ms Zhao was admitted to [facility] with possible CVA. She was not a candidate for TPA due to time and NIH score. She had MRI which showed acute CVA. BP was markedly elevated on arrival and slowly was lowered. She has been seeing renal as outpatient for work up of new nephrotic syndrome. Today she feels good. She is afebrile. BP has been better controlled. She is ready for discharge home and outpatient follow up. She will follow closely with renal as well. Discharge discussed with: patient, nurse Time spent discussing smoking cessation with patient: 3 to 10 minutes - Time Spent with Patient Total time spent providing and/or coordinating discharge services: 39min - Discharge Medications Prescriptions: amLODIPine [Norvasc] 10 mg PO DAILY #30 tablet Atorvastatin [Lipitor] 40 mg PO HS #30 tablet Lisinopril [Zestril] 40 mg PO DAILY #60 tablet Nicotine Patch [Nicoderm] 14 mg TD DAILY #30 patch.td24 Home Medications: Albuterol Neb [Proventil Neb] 2.5 mg IH Q6H PRN 04/16/18 [History] Fluticasone/Salmeterol [Advair 250-50 Diskus] 1 puff IH BID 04/16/18 [History] Ipratropium/Albuterol Sulfate [Combivent Respimat 20-100 Mcg] 2 puff IH BID PRN 04/16/18 [History] Metformin HCl 500 mg PO BID 04/16/18 [History] Omeprazole [PriLOSEC] 40 mg PO DAILY 04/16/18 [History] Aspirin Enteric Coated [Aspirin EC] 81 mg PO DAILY tablet. 04/19/18 [Rx] Atorvastatin [Lipitor] 40 mg PO HS #30 tablet 04/19/18 [Rx] Lisinopril [Zestril] 40 mg PO DAILY #60 tablet 04/19/18 [Rx] Nicotine Patch [Nicoderm] 14 mg TD DAILY #30 patch.td24 04/19/18 [Rx] amLODIPine [Norvasc] 10 mg PO DAILY #30 tablet 04/19/18 [Rx] Allergies/Adverse Reactions: 3 Allergy/AdvReac Type Severity Reaction Status Date / Time No Known Allergies Allergy Verified 04/16/18 14:57 Date of admission: 04/16/18 18:25 Primary care physician: Amadou Ching MD Consults: 04/17/18 16:02 Consult to Nephrology [CONS] Routine Consulting Provider: [facility] Reason for Consult: Glomerulonephritis, stroke Call Completed: Yes - Constitutional Vitals: Temp Pulse Resp BP Pulse Ox 97.7 F 66 18 149/83 93 04/19/18 07:42 04/19/18 07:42 04/19/18 07:42 04/19/18 07:42 04/19/18 07:42 General appearance: Present: A&O X 3, pleasant, answers questions appropriately - Head Head exam: Present: normocephalic - Eye Eye exam: Present: EOMI, normal appearance, conjuntiva pink - ENT ENT exam: Present: mucous membranes moist - Respiratory Respiratory exam: Present: CTAB. Absent: rales, rhonchi, wheezes - Cardiovascular Cardiovascular exam: Present: RRR. Absent: systolic murmur, tachycardia - GI/Abdominal GI/Abdominal exam: Present: normal bowel sounds, soft - Extremities Exam Extremities exam: Present: warm. Absent: tenderness - Neurological Exam Neurological exam: Present: alert, oriented X3, facial droop (Slight R facial droop noted ) - Skin Skin exam: Present: dry, warm - Patient Status Disposition: Home, Self-Care Condition: Fair Functional capacity at discharge: independent ambulation Overall status at discharge: patient is progressing back to baseline - Discharge Instructions Follow Up With: Amadou Ching MD [Primary Care Provider] - (Follow up in 1-2 weeks) - Diet and Activity Activity: increase activity as tolerated Diet: diabetic diet, low fat, low cholesterol, low salt diet
--- NOTE | 2018-04-19 11:05 | Electrocardiograph Report ---
[address] [address] Test Date: 2018-04-16 Pat Name: Bia Zhao Department: 103 Room: 2NE32 Gender: F Farm Tractor Mechanic: DONNA : 1955 Requested By: Domingo Simons Order Number: [id number] Reading MD: Markell Pop Measurements Intervals [place] Rate: 79 P: 36 ND: 184 QRS: -26 QRSD: 93 T: 46 QT: 393 QTc: 427 Interpretive Statements SINUS RHYTHM BORDERLINE LEFT AXIS DEVIATION VOLTAGE CRITERIA FOR LVH NONSPECIFIC T-WAVE ABNORMALITY Electronically Signed On 04-19-2018 11:04:05 EDT by Markell Pop
== END 2018-04-19 10:45 | disposition home or self-care (01) | DRG 65 ==
LOC: EMEROO 14:55 → 2NENU 14:55 → OBSVTOIN 18:25 → SUATTDRO 18:25 → 2NENU 18:57
PROVIDERS: ADMIT Family Medicine; ATTEND Internal Medicine